=== PATIENT | male | born 1980 | race Caucasian/White ===

== ENCOUNTER 2016-07-27 08:13 | Day surgery (SDC) | payer BC ==
[2016-07-22 11:05] VITALS: BMI 28.8
[2016-07-27] MEDS ORDERED: MIDAZOLAM HCL 2 MG/2 ML SINGLE DOSE VIAL ONE (09:33)
[2016-07-27] MEDS ORDERED: PROPOFOL 20 ML ONE ×2 (09:37)
[2016-07-27] MEDS ORDERED: BUPIVACAINE HCL/PF 2.5 MG/ML - 30 ML VIAL IJ ONE (10:00)
[2016-07-27] MEDS ORDERED: LACTATED RINGERS SOLUTION 1,000 ML IV SCH (11:15)
[2016-07-27] MEDS ORDERED: ONDANSETRON 4 MG/2 ML VIAL IVPUSH PRN (11:15)
[2016-07-27] MEDS ORDERED: BUPIVACAINE HCL/PF 0.25% (2.5MG/ML) 10 ML VIAL IJ ONE (11:15)
[2016-07-27] MEDS ORDERED: oxyCODONE HCL 5 MG TABLET PO PRN ×2 (11:15)
[2016-07-27 12:33] VITALS: TEMP 98.2
[2016-07-27 14:07] VITALS: BP 124/70; PULSE 84
--- NOTE | 2016-07-28 09:19 | OP ---
DATE OF OPERATION: 07/27/2016 PREOPERATIVE DIAGNOSIS: Left wrist mass. POSTOPERATIVE DIAGNOSES: 1. Left wrist mass. 2. Left wrist adherent radial artery. OPERATIVE PROCEDURES: 1. Left wrist mass excision. 2. Left wrist radial artery extensive dissection and ligation. SURGEON: Karol Garibay MD MARKET RESEARCH INTERVIEWER: DIAMANTE Yusuf ANESTHESIA: General. COMPLICATIONS: None. ESTIMATED BLOOD LOSS: Minimal. INDICATIONS FOR PROCEDURE: The patient is a 35-year-old male with the above finding, indicated for operative treatment. Risks, benefits, and alternatives were discussed with the patient at length and proper informed consent was obtained. The patient was particularly advised preoperatively, as this was his third operation in the area, extensive scar tissue would be expected and ligation of the artery may be necessary. Preoperative Murali test was patent at the ulnar and radial artery. PROCEDURE: After proper identification of the patient and correct operative site, the patient was brought to the operating room and placed supine on the operating room table. All prominences were well padded. General anesthesia was given by the anesthesiologist. Intravenous antibiotics were given. A timeout procedure was performed. Left upper extremity was prepped and draped in the usual sterile fashion. A well-padded tourniquet was placed over the sterile prep. Esmarch bandage used to exsanguinate the left upper extremity. Tourniquet was inflated to 250 mmHg. The patient's prior incision was made and then enlarged distally and proximally. Incision was taken sharply through the skin with blunt and sharp dissection of subcutaneous tissues. The mass was quite large and appeared to be a cystic structure. It was in the volar radial aspect and then over the opposite side dorsal radially compartment. Dissection was performed through the subcutaneous tissues, taking care to protect any attaching nerves. The radial artery was identified proximally and distally and was densely adherent to the mass. Therefore, it was ligated both proximally and distally. The tourniquet was released and the hand was well perfused. The tourniquet was reinflated and the mass was excised in whole and appeared to be emanating from the radiocarpal joint. The mass was one large, multi-loculated structure. The tourniquet was again released and hemostasis was achieved with electrocautery. The hand was again well perfused. The wound was irrigated with copious amounts of normal saline and repaired with a 5-0 nylon suture. Sterile dressings were applied. The patient was reversed from anesthesia and brought to the recovery room in stable condition. He tolerated the procedure well. Angel Hogan, the assistant reading teacher, was integral throughout this procedure. The procedure could not have been performed without a skilled operative assistant reading teacher. KAROL GARIBAY M.D. JOSE [id number]
--- NOTE | 2016-07-29 16:16 | PATH ---
Surgical Pathology Report Patient Name: KYAW ERAZO JR [facility]. Rec. #: [id number] /Age/Gender: 1980 (Age: 35) / M Account: [id number] Location: [facility] Taken: 07/27/2016 Received: 07/27/2016 Reported: 07/29/2016 Physicians: Julio Jimenez M.D. Specimen(s) Received LEFT WRIST MASS Clinical History Left wrist mass Final Diagnosis WRIST, LEFT, MASS, EXCISION: GANGLION CYST. Electronically Signed Erika Briones M.D. Gross Description Received in formalin labeled "left wrist mass," is a 1.2 x 1.1 x 0.4 cm duffy, intact cyst containing mucinous material. Also received within the same container is a 1.8 x 0.6 x 0.4 cm duffy, irregular portion of fibrous tissue. The fibrous tissue is bisected and the cyst is serially sectioned. The specimen is entirely submitted in one cassette. 07/28/201607/28/2016
== END 2016-07-27 12:50 | disposition home or self-care (01) ==
LOC: FASU 08:13
PROVIDERS: ATTEND Orthopaedic Surgery Hand Surgery
PROC: 0JBH0ZZ Excision of Left Lower Arm Subcutaneous Tissue and Fascia, Open Approach (ICD-10-PCS; principal; 2016-07-27 09:59)
DX: M67.432 Ganglion, left wrist (principal)
CPT/HCPCS: 88304-TC; 94760

== ENCOUNTER 2018-02-19 09:54 | Inpatient (IN) | payer BC ==
[2018-02-16 08:58] VITALS: BMI 30.1
[2018-02-19] MEDS ORDERED: oxyCODONE HCL 5 MG TABLET ONE (11:50)
[2018-02-19] MEDS ORDERED: oxyCODONE HCL 5 MG TABLET PO ONE (11:57)
[2018-02-19] MEDS ORDERED: PROPOFOL 20 ML ONE ×10 (17:46→20:25)
[2018-02-19] MEDS ORDERED: fentaNYL CITRATE 250 MCG/5 ML VIAL ONE ×2 (17:46→19:02)
[2018-02-19] MEDS ORDERED: MIDAZOLAM HCL 2 MG/2 ML SINGLE DOSE VIAL ONE ×4 (17:46)
[2018-02-19] MEDS ORDERED: SUCCINYLCHOLINE CHLORIDE 200 MG/10 ML VIAL ONE (17:47)
[2018-02-19] MEDS ORDERED: THROMBIN (BOVINE) 5,000 UNIT VIAL TP ONE (18:03)
[2018-02-19] MEDS ORDERED: VANCOMYCIN 1,000 MG VIAL (RESTRICTED TO ID ONLY) ONE (18:24)
[2018-02-19] MEDS ORDERED: VANCOMYCIN 1,000 MG VIAL (RESTRICTED TO ID ONLY) IVPB ONE (18:27)
[2018-02-19] MEDS ORDERED: DEXAMETHASONE SOD PHOSPHATE 4 MG/1 ML VIAL ONE ×2 (18:43→18:48)
[2018-02-19] MEDS ORDERED: ceFAZolin SODIUM 1 GM VIAL IVPB ONE (18:48)
[2018-02-19] MEDS ORDERED: ceFAZolin SODIUM 1 GM VIAL ONE (18:49)
[2018-02-19] MEDS ORDERED: DESFLURANE GAS 240 ML BOTTLE IH ONE (19:48)
--- NOTE | 2018-02-19 21:04 | PN ---
Progress Note (short form) - Note Progress Note: 37M s/p C4-C5 ACDF POD #0. -Admit to ICU for airway observation; ok to downgrade to floor if airway stable 02/20/2018. 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 -DVT PPx: -Mechanical only: ALISTAIR's, SCD's. -Incentive spirometry. -PT/OT/Rehab, OOB. -WBAT B/L UE & LE. -No heavy lifting >5 lbs., bending, or twisting. -Puree diet; advance as tolerated. -Care per medical hospitalist team. -d/c Ordaz at midnight; f/u TOV. -Discharge planning: f/u [facility] [place] office 03/01/2018. -Will follow. Luis Antonio Beckford MD (Orthopaedic Surgery).
--- NOTE | 2018-02-19 21:06 | OP ---
Operative Note - Note: Operative Date: 02/19/18 Pre-Operative Diagnosis: C4-C5: 1. Intervertebral disc disorder. 2. Cervical radiculopathy. 3. Cervical myelopathy. 4. Cervical spinal stenosis Operation: C4-C5 anterior cervical discectomy and fusion Post-Operative Diagnosis: Same as Pre-op Surgeon: Luis Antonio Beckford Contour Stitcher: Bret Beckfodr Anesthesiologist/DAMPENER: Jennifer Hernandez Anesthesia: General Specimens Removed: C4-C5 disc Estimated Blood Loss (mls): 20 Fluid Volume Replaced (mls): 1,000 Operative Report Dictated: Yes
[2018-02-19] MEDS ORDERED: ONDANSETRON 4 MG/2 ML VIAL IVPUSH PRN ×2 (21:07)
[2018-02-19] MEDS ORDERED: oxyCODONE HCL 5 MG TABLET PO PRN (21:07)
[2018-02-19] MEDS ORDERED: LACTATED RINGERS SOLUTION 1,000 ML IV SCH ×2 (21:15)
[2018-02-19] MEDS ORDERED: ACETAMINOPHEN INJECTION 100 ML IVPB ONE (21:25)
[2018-02-19] MEDS: ACETAMINOPHEN 1000 MG/100 ML VIAL (NON FORMULARY) IVPB PRN (21:25)
[2018-02-19] MEDS: HYDROmorphone HCl 2 MG/ML VIAL IVPB PRN (23:14)
[2018-02-20] MEDS: oxyCODONE HCL 5 MG TABLET PO PRN ×5 (02:35→20:54)
--- NOTE | 2018-02-20 04:50 | CONSULT ---
Consultation: REQUESTING PROVIDER: Dr. Beckford CONSULT REQUEST: We have been asked to medically evaluate this patient for s/p anterior cervical discectomy and fusion. HISTORY OF PRESENT ILLNESS: Patient is a 37 year old male with PMHx of cervical progressive cervical radiculopathy for the past year with failure of conservative care. Patient had no injury reported prior to the pain and was scheduled for elective procedure . Patient is now POD #0 s/p C4-C5 anterior cervical discectomy and fusion and transferred to ICU for overnight monitoring. Patient had estimated blood loss of 20cc with no complications intraoperatively reported. Patient reports having some soreness around the neck but is adequately controlled with the pain medications. He does report passing gas but has not had a bowel movement. Otherwise, patient denies any fever, chills, nausea, vomiting, abdominal pain, chest pain, palpitations, shortness of breath, headaches. PMHx: Chronic lower back pain PSHx: Denies Social Hx: Works for the [employer] at the [employer]. Lives with , three kids and mother Smokes 1/2 PPD for 20+ years Occasional drinking Denies Drug use Family Hx: Mother is healthy Father had DM, HTN, HLD, Heart problems Medications: Denies taking any Allergies: NKDA REVIEW OF SYSTEMS: CONSTITUTIONAL: Absent: fever, chills, diaphoresis, generalized weakness, malaise, loss of appetite, weight change HEENT: Absent: rhinorrhea, nasal congestion, throat pain, throat swelling, difficulty swallowing, mouth swelling, ear pain, eye pain, visual changes CARDIOVASCULAR: Absent: chest pain, syncope, palpitations, irregular heart rate, lightheadedness , peripheral edema RESPIRATORY: Absent: cough, shortness of breath, dyspnea with exertion, orthopnea, wheezing, stridor, hemoptysis GASTROINTESTINAL: Absent: abdominal pain, abdominal distension, nausea, vomiting, diarrhea, constipation, melena, hematochezia GENITOURINARY: Absent: dysuria, frequency, urgency, hesitancy, hematuria, flank pain, genital pain MUSCULOSKELETAL: neck pain Absent: myalgia, arthralgia, joint swelling, back pain SKIN: Absent: rash, itching, pallor HEMATOLOGIC/IMMUNOLOGIC: Absent: easy bleeding, easy bruising, lymphadenopathy, frequent infections ENDOCRINE: Absent: unexplained weight gain, unexplained weight loss, heat intolerance, cold intolerance NEUROLOGIC: Absent: headache, focal weakness or paresthesias, dizziness, unsteady gait, seizure, mental status changes, bladder or bowel incontinence PSYCHIATRIC: Absent: anxiety, depression, suicidal or homicidal ideation, hallucinations. PHYSICAL EXAMINATION Vital Signs - 24 hr 02/19/18 02/19/18 02/19/18 10:38 20:57 21:10 Temperature 97.9 F 99 F Pulse Rate 89 93 H 84 Respiratory 20 20 16 Rate Blood Pressure 125/69 134/88 121/62 O2 Sat by Pulse 98 100 100 Oximetry (%) 02/19/18 02/19/18 02/19/18 21:25 21:40 21:55 Temperature Pulse Rate 80 82 82 Respiratory 16 16 16 Rate Blood Pressure 130/81 130/80 128/79 O2 Sat by Pulse 100 100 100 Oximetry (%) 02/19/18 02/19/18 02/19/18 22:10 22:20 23:57 Temperature 98.5 F 98.7 F Pulse Rate 80 72 76 Respiratory 16 16 18 Rate Blood Pressure 125/83 125/67 110/70 O2 Sat by Pulse 100 99 Oximetry (%) 02/20/18 01:07 Temperature 98.5 F Pulse Rate 79 Respiratory 18 Rate Blood Pressure 123/81 O2 Sat by Pulse Oximetry (%) GENERAL: Awake, alert, and fully oriented, in no acute distress. HEAD: Normal with no signs of trauma. EYES: Pupils equal, round and reactive to light, extraocular movements intact, sclera anicteric, conjunctiva clear. No lid lag. EARS, NOSE, THROAT: Oropharynx clear without exudates. Dry mucous membranes. NECK: Left surgical dressing c/d/i LUNGS: Breath sounds equal, clear to auscultation bilaterally. No wheezes, and no crackles. No accessory muscle use. HEART: Regular rate and rhythm, normal S1 and S2 without murmur, rub or gallop. ABDOMEN: Soft, nontender, not distended, normoactive bowel sounds, no guarding, no rebound, no masses. : Ordaz in place UPPER EXTREMITIES: No peripheral edema. LOWER EXTREMITIES: No peripheral edema. NEUROLOGICAL: Cranial nerves II-XII intact. Normal speech. Motor strength 5/5 bilaterally with sensory intact. No facial assymetry PSYCHIATRIC: Cooperative. Good eye contact. Appropriate mood and affect. SKIN: Warm, dry, normal turgor, no rashes or lesions noted. Laboratory Results - last 24 hr 02/19/18 02/19/18 10:01 10:35 Blood Type O POSITIVE O POSITIVE Antibody Screen Negative Active Medications Generic Name Dose Route Start Last Admin Trade Name Colin PRN Reason Stop Dose Admin Acetaminophen 1,000 mg 02/19/18 21:07 02/19/18 21:25 Ofirmev Injection - IVPB 02/20/18 21:06 1,000 mg PRN PRN Administration If narcotics are ineffective Fentanyl 50 mcg 02/19/18 21:07 02/19/18 21:31 Sublimaze Injection - IVPUSH 50 mcg [id number] PRN Administration PAIN-PACU ORDER X 4 DOSES ONLY Hydromorphone HCl 1 mg 02/19/18 21:08 02/19/18 23:14 Dilaudid Vial - IVPB 1 mg Q4H PRN Administration PAIN LEVEL 6-10 Lactated Ringer's 1,000 mls @ 75 mls/hr 02/19/18 21:15 02/20/18 02:22 Lactated Ringers Solution IV Not Given ASDIR KRISTY Lactated Ringer's 1,000 mls @ 125 mls/hr 02/19/18 21:15 02/19/18 22:30 Lactated Ringers Solution IV 125 mls/hr ASDIR KRISTY Administration Ondansetron HCl 4 mg 02/19/18 21:07 Zofran Injection IVPUSH Q6H PRN NAUSEA AND/OR VOMITING Oxycodone HCl 5 mg 02/19/18 21:07 Roxicodone - PO Q4H PRN PAIN LEVEL 6-10 Oxycodone HCl 10 mg 02/19/18 21:07 02/20/18 02:35 Roxicodone - PO 10 mg Q4H PRN Administration PAIN LEVEL 7 - 10 ASSESSMENT/PLAN: Patient is a 37 year old male who presented here for elective procedure due to progressive cervical radiculopathy and is now s/p C4-C5 anterior cervical discectomy and fusion. Patient transferred to ICU for further monitoring and management. SURGERY #S/P C4-C5 anterior cervical discectomy and fusion -Pain control with Dilaudid, Tylenol, Roxicodone. No NSAID's or FILM HISTORIAN -IV fluids with LR @125mls/hr -Mechanical DVT prophylaxis with SCD's and ALISTAIR's -Continue Incentive spirometry -Puree diet and may advance as tolerated -Will need PT/OT/Rehab and OOB -Weight Bearing as tolerated -No heavy lifting >5lb, bending or twisting F/E/N -IV LR @125mls/hr -Labs in the morning to check for electrolytes -Puree Diet Prophylaxis -SCD's and ALISTAIR's for DVT -No GI required Disposition -Full code -Overnight monitoring and if stable, may be transferred to the floors in the morning Dispo: We will continue to follow the patient. Thank you for this consultative opportunity. Tiffani Erickson [id number] Visit type - Emergency Visit Emergency Visit: Yes ED Registration Date: 02/19/18 Care time: The patient presented to the Emergency Department on the above date and was hospitalized for further evaluation of their emergent condition. - New Patient This patient is new to me today: Yes Date on this admission: 02/20/18 - Critical Care Critical Care patient: Yes Total Critical Care Time (in minutes): 45 Critical Care Statement: The care of this patient involved high complexity decision making to prevent further life threatening deterioration of the patient 's condition and/or to evaluate & treat vital organ system(s) failure or risk of failure.
[2018-02-20] MEDS: HYDROmorphone HCl 2 MG/ML VIAL IVPB PRN (05:07)
[2018-02-20 06:13] LABS: HEMATOCRIT 42.5 % (35.4-49); HEMOGLOBIN 14.7 GM/dL (11.7-16.9); MCH 30.1 pg (25.7-33.7); MCHC 34.7 g/dl (32.0-35.9); MEAN CELL VOLUME 86.9 fl (80-96); MEAN PLT VOLUME 7.9 fl (7.5-11.1); PLATELET COUNT 299 K/MM3 (134-434); RBC 4.89 M/mm3 (4.00-5.60); RDW 13.9 % (11.9-15.9); WHITE BLOOD COUNT 11.2 K/mm3 (4.0-10.0)
[2018-02-20 07:10] LABS: ANION GAP 6 MMOL/L (8-16); BLOOD UREA NITROGEN 12 mg/dL (7-18); CALCIUM 9.3 mg/dL (8.5-10.1); CHLORIDE 100 mmol/L (98-107); CO2 30 mmol/L (21-32); GLUCOSE,RANDOM 124 mg/dL (74-106); POTASSIUM 4.5 mmol/L (3.5-5.1); SODIUM 136 mmol/L (136-145)
--- NOTE | 2018-02-20 08:28 | PN ---
Progress Note, Physician Chief Complaint: s/p acdf under general anesthesia History of Present Illness: post op day one - Current Medication List Current Medications: Active Medications Acetaminophen (Ofirmev Injection -) 1,000 mg IVPB PRN PRN PRN Reason: If narcotics are ineffective Stop: 02/20/18 21:06 Last Admin: 02/19/18 21:25 Dose: 1,000 mg Fentanyl (Sublimaze Injection -) 50 mcg IVPUSH [id number] PRN PRN Reason: PAIN-PACU ORDER X 4 DOSES ONLY Last Admin: 02/19/18 21:31 Dose: 50 mcg Hydromorphone HCl (Dilaudid Vial -) 1 mg IVPB Q4H PRN PRN Reason: PAIN LEVEL 6-10 Last Admin: 02/20/18 05:07 Dose: 1 mg Lactated Ringer's (Lactated Ringers Solution) 1,000 mls @ 75 mls/hr IV [facility] Last Admin: 02/20/18 02:22 Dose: Not Given Lactated Ringer's (Lactated Ringers Solution) 1,000 mls @ 125 mls/hr IV [facility] Last Admin: 02/19/18 22:30 Dose: 125 mls/hr Ondansetron HCl (Zofran Injection) 4 mg IVPUSH Q6H PRN PRN Reason: NAUSEA AND/OR VOMITING Oxycodone HCl (Roxicodone -) 5 mg PO Q4H PRN PRN Reason: PAIN LEVEL 6-10 Oxycodone HCl (Roxicodone -) 10 mg PO Q4H PRN PRN Reason: PAIN LEVEL 7 - 10 Last Admin: 02/20/18 07:51 Dose: 10 mg - Objective Vital Signs: Vital Signs Temperature 98.2 F 02/20/18 06:00 Pulse Rate 78 02/20/18 06:00 Respiratory Rate 18 02/20/18 06:00 Blood Pressure 120/70 02/20/18 06:00 O2 Sat by Pulse Oximetry (%) 99 02/19/18 23:57 Constitutional: Yes: Well Nourished Cardiovascular: Yes: WNL Respiratory: Yes: WNL Gastrointestinal: Yes: WNL Labs: CBC, BMP 02/20/18 05:30 02/20/18 05:30 Assessment/Plan No adverse effect of anesthetic, no nausea or vomiting, dept of anesthesiology will sign off care at this time
[2018-02-20 08:58] LABS: MAGNESIUM 2.2 mg/dL (1.8-2.4); PHOSPHOROUS 4.6 mg/dL (2.5-4.9)
[2018-02-20] MEDS: ACETAMINOPHEN 1000 MG/100 ML VIAL (NON FORMULARY) IVPB PRN (11:30)
--- NOTE | 2018-02-20 11:34 | OP ---
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 OPERATION PERFORMED: 1. Anterior cervical discectomy C4-C5. 2. Partial corpectomy C4, partial corpectomy C5. 3. Insertion of cage. 4. Anterior arthrodesis with bone graft C4-C5 5. Anterior plating, C4-C5. 6. Use of biplane fluoroscopy and intraoperative neuromonitoring. ANESTHESIA: General. ANTIBIOTICS: Kefzol 2 g, vancomycin 1 g, and Decadron 10 mg given preoperatively. OPERATION IN DETAIL: The patient was correctly identified, brought into the operating room, placed supine on the operating table, placed neck extended. No change in neuromonitoring noted from the neutral position to the extended position. Time-out was called. Imaging was available for intraoperative evaluation. An incision at the lines of Paulina at the level of cricothyroid interval performed. This gave easy access to platysma, which was split longitudinally. This took us directly down to the investing layer of fascia. This was opened longitudinally in the line of the platysmal split. With finger digital palpation, the plane lateral to the strap muscles between the viscera and vessels and really enabled us to get straight down to the anterior vertebral prevertebral fascia. A peanut was used to develop a plane within the fascia deep to the fascia to the anterior vertebral bodies and longus coli. The longus coli was gently dissected off of bone using unipolar Bovie both left and right hand side to receive the tooth retractor, which was a self-retaining retractor into the muscle belly itself. A needle 18-gauge bent appropriately degrees was placed into the C4-C5 disc. Lateral fluoroscopic x- ray confirmed the position of the C4-C5 disc for correct level of surgery. [place] pins were placed in the body of C4 and C5. This was again looked at under fluoroscopic x-ray to ensure the correct levels and the good seating of the pins. The distractor device applied. The edge of the annulus and disc were transected going in a transverse direction using a unipolar Bovie. The entire disc, which was clearly abnormal and fragmented was removed using pituitary rongeurs as well as curettes appropriately. Using a 40-mm michael-tipped tevin, the uncovertebral joints as well as the end- plates were shaved down to a rectangular space. The disc was taken right down to posterior longitudinal ligament. The longitudinal ligament was taken down right down to the theca and exposing the theca completely from left to right hand side. All forms of thecal material were removed. The rongeur achieved a complete resection of such. A partial corpectomy was performed at C4 and C5 appropriately using Kerrisons as well as the tevin. A size 7 Fortilink cage was inserted with bone graft namely demineralized bone matrix. This was seated solidly into position and a [place] device released snugly bringing about ligamentotaxis adherence of the cage appropriately. A size 14 precision plate inserted. The screws were placed appropriately. It was felt to be in solid bone because usually the lateral fluoroscopic x-ray enables clear vision of the plate and screws, but the ambulatory nurse struggled to give us clear visualization. We went back and looked inside the wound to line up the screws clinically to see that everything was seated well and we elected to accept the position we were in. The plate was locked solidly in position accordingly. Wounds were thoroughly lavaged. Closure platysma 3-0 Vicryl, subcutaneous 3-0 Vicryl, skin 3-0 Monocryl with Steri-Strips. No drains. Operation went well, no complications. MD TARI Erickson/[id number] MTDD
--- NOTE | 2018-02-20 13:15 | PN ---
Physical Exam: SUBJECTIVE: Patient seen and examined; wanted to go home today as thought he was only qualified for 23 hours but he is set for full inpatient; Dr. Zambrano confirmed with CM. No new complaints. Radiculopathy resolved. No numbness, tingling. Strength is baseline. 10 sys ROS done and negative aside from HPI OBJECTIVE: Vital Signs Period Temp Pulse Resp BP Sys/Christopher Pulse Ox Last 24 Hr 98.2 F-99 F 72-93 16-20 110-134/62-90 95-100 GENERAL: The patient is awake, alert, and fully oriented, in no acute distress. HEAD: Normal with no signs of trauma. EYES: PERRL, extraocular movements intact, sclera anicteric, conjunctiva clear. ENT: Ears normal, nares patent, oropharynx clear without exudates NECK: Trachea midline, full range of motion, supple. LUNGS: Breath sounds equal, clear to auscultation bilaterally, no wheezes, no crackles, no accessory muscle use. HEART: Regular rate and rhythm, S1, S2 without murmur, rub or gallop. ABDOMEN: Soft, nontender, nondistended, normoactive bowel sounds EXTREMITIES: 2+ pulses, warm, well-perfused, no edema. NEUROLOGICAL: Cranial nerves II through XII grossly intact. Normal speech, strength 5/5 all ext with normal sensorium PSYCH: Normal mood, normal affect. SKIN: Warm, dry, normal turgor, no rashes or lesions noted; dressing CDI Laboratory Results - last 24 hr 02/19/18 02/20/18 02/20/18 10:35 05:30 05:30 WBC 11.2 H RBC 4.89 Hgb 14.7 Hct 42.5 MCV 86.9 MCH 30.1 MCHC 34.7 RDW 13.9 Plt Count 299 MPV 7.9 Sodium 136 Potassium 4.5 Chloride 100 Carbon Dioxide 30 Anion Gap 6 L BUN 12 Creatinine 1.0 Creat Clearance w eGFR > 60 Random Glucose 124 H Calcium 9.3 Phosphorus 4.6 Magnesium 2.2 Blood Type O POSITIVE Active Medications Generic Name Dose Route Start Last Admin Trade Name Freq PRN Reason Stop Dose Admin Acetaminophen 1,000 mg 02/19/18 21:07 02/20/18 11:30 Ofirmev Injection - IVPB 02/20/18 21:06 1,000 mg PRN PRN Administration If narcotics are ineffective Fentanyl 50 mcg 02/19/18 21:07 02/19/18 21:31 Sublimaze Injection - IVPUSH 50 mcg [id number] PRN Administration PAIN-PACU ORDER X 4 DOSES ONLY Hydromorphone HCl 1 mg 02/19/18 21:08 02/20/18 05:07 Dilaudid Vial - IVPB 1 mg Q4H PRN Administration PAIN LEVEL 6-10 Ondansetron HCl 4 mg 02/19/18 21:07 Zofran Injection IVPUSH Q6H PRN NAUSEA AND/OR VOMITING Oxycodone HCl 5 mg 02/19/18 21:07 Roxicodone - PO Q4H PRN PAIN LEVEL 6-10 Oxycodone HCl 10 mg 02/19/18 21:07 02/20/18 12:06 Roxicodone - PO 10 mg Q4H PRN Administration PAIN LEVEL 7 - 10 ASSESSMENT/PLAN: 1) S/P Anterior C4-C5 Discectomy and fusion, elective. POD#1 -Pain controlled on PO; passing gas. Tolerating liquids and will advance diet as tolerated -Downgrading to floor, avoiding NSAIDs and continue current PO analgesia. -SCDs for DVT px -Avoid twisting, 5lb lifting restriction -Monitor airway; no distress or swelling noted. Preform serial exams. -If stable tomorrow consider potential for DC; counseled regarding LOS in hospital and what to expect. 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 Visit type - Emergency Visit Emergency Visit: No - New Patient This patient is new to me today: Yes Date on this admission: 02/20/18 - Critical Care Critical Care patient: No
--- NOTE | 2018-02-20 14:34 | PN ---
Teaching Attending Note Name of Resident: Giancarlo George ATTENDING PHYSICIAN STATEMENT I saw and evaluated the patient. I reviewed the resident's note and discussed the case with the resident. I agree with the resident's findings and plan as documented. SUBJECTIVE: Patient seen and examined in the ICU. Awake and alert. Pain level 3/10. No CP or SOB. Intake & Output 02/18/18 02/18/18 02/19/18 02/20/18 00:59 23:59 23:59 23:59 Intake Total 1800 1850 Output Total 820 1675 Balance 980 175 Last Vital Signs Temp Pulse Resp BP Pulse Ox 98.3 F 74 18 116/65 95 02/20/18 13:55 02/20/18 13:55 02/20/18 13:55 02/20/18 13:55 02/20/18 09:00 Active Medications Acetaminophen (Ofirmev Injection -) 1,000 mg IVPB PRN PRN PRN Reason: If narcotics are ineffective Stop: 02/20/18 21:06 Last Admin: 02/20/18 11:30 Dose: 1,000 mg Fentanyl (Sublimaze Injection -) 50 mcg IVPUSH [id number] PRN PRN Reason: PAIN-PACU ORDER X 4 DOSES ONLY Last Admin: 02/19/18 21:31 Dose: 50 mcg Hydromorphone HCl (Dilaudid Vial -) 1 mg IVPB Q4H PRN PRN Reason: PAIN LEVEL 6-10 Last Admin: 02/20/18 05:07 Dose: 1 mg Ondansetron HCl (Zofran Injection) 4 mg IVPUSH Q6H PRN PRN Reason: NAUSEA AND/OR VOMITING Oxycodone HCl (Roxicodone -) 5 mg PO Q4H PRN PRN Reason: PAIN LEVEL 6-10 Oxycodone HCl (Roxicodone -) 10 mg PO Q4H PRN PRN Reason: PAIN LEVEL 7 - 10 Last Admin: 02/20/18 12:06 Dose: 10 mg GENERAL: Awake, alert, and fully oriented, in no acute distress. HEAD: Mild right sided facial swelling EYES: Pupils equal, sclera anicteric, conjunctiva clear. No lid lag. EARS, NOSE, THROAT: Dry mucous membranes. NECK: surgical dressing c/d/i LUNGS: Breath sounds equal, clear to auscultation bilaterally. No wheezes, and no crackles. No accessory muscle use. HEART: Regular rate and rhythm, normal S1 and S2 without murmur, rub or gallop. ABDOMEN: Soft, nontender, not distended, normoactive bowel sounds, no guarding, no rebound, no masses. UPPER EXTREMITIES: No peripheral edema. LOWER EXTREMITIES: No peripheral edema. NEUROLOGICAL: non-focal PSYCHIATRIC: Cooperative. Good eye contact. Appropriate mood and affect. SKIN: Warm, dry, normal turgor, no rashes or lesions noted. Laboratory Results - last 24 hr 02/19/18 02/20/18 02/20/18 10:35 05:30 05:30 WBC 11.2 H RBC 4.89 Hgb 14.7 Hct 42.5 MCV 86.9 MCH 30.1 MCHC 34.7 RDW 13.9 Plt Count 299 MPV 7.9 Sodium 136 Potassium 4.5 Chloride 100 Carbon Dioxide 30 Anion Gap 6 L BUN 12 Creatinine 1.0 Creat Clearance w eGFR > 60 Random Glucose 124 H Calcium 9.3 Phosphorus 4.6 Magnesium 2.2 Blood Type O POSITIVE ASSESSMENT/PLAN: POD #1: C4-C5 anterior cervical discectomy and fusion Progressive cervical radiculopathy Pain control VTE prophylaxis O2 as needed PO as tolerated Floor Disposition per Ortho Dr Jarrell
--- NOTE | 2018-02-20 16:45 | PN ---
Physical Exam: SUBJECTIVE: Patient seen and examined at bedside. Patient reports pain on surgical site, relieved by pain medications. Ordaz discontinued this morning, no complaints of retention. Patient denies weakness, numbness, tingling. He is able to ambulate OOB with assistance. Reports that he has passed gas this morning. Started on regular diet tonight to which he tolerated. OBJECTIVE: Vital Signs Period Temp Pulse Resp BP Sys/Christopher Pulse Ox Last 24 Hr 98.2 F-99 F 72-93 16-20 110-134/62-90 95-100 GENERAL: The patient is awake, alert, and fully oriented, in no acute distress. HEAD: Normal with no signs of trauma. EYES: PERRLA, EOMI, sclera anicteric, conjunctiva clear. NECK: +bandage anteriorly LUNGS: Breath sounds equal, clear to auscultation bilaterally. HEART: Regular rate and rhythm, S1, S2 without murmur, rub or gallop. ABDOMEN: Soft, nontender, nondistended, normoactive bowel sounds. EXTREMITIES: 2+ pulses, warm, well-perfused, no edema. NEUROLOGICAL: Cranial nerves II through XII grossly intact. Normal speech, gait not observed. PSYCH: Normal mood, normal affect. SKIN: Warm, dry, normal turgor, no rashes or lesions noted Laboratory Results - last 24 hr 02/20/18 02/20/18 05:30 05:30 WBC 11.2 H RBC 4.89 Hgb 14.7 Hct 42.5 MCV 86.9 MCH 30.1 MCHC 34.7 RDW 13.9 Plt Count 299 MPV 7.9 Sodium 136 Potassium 4.5 Chloride 100 Carbon Dioxide 30 Anion Gap 6 L BUN 12 Creatinine 1.0 Creat Clearance w eGFR > 60 Random Glucose 124 H Calcium 9.3 Phosphorus 4.6 Magnesium 2.2 Active Medications Generic Name Dose Route Start Last Admin Trade Name Freq PRN Reason Stop Dose Admin Acetaminophen 1,000 mg 02/19/18 21:07 02/20/18 11:30 Ofirmev Injection - IVPB 02/20/18 21:06 1,000 mg PRN PRN Administration If narcotics are ineffective Fentanyl 50 mcg 02/19/18 21:07 02/19/18 21:31 Sublimaze Injection - IVPUSH 50 mcg [id number] PRN Administration PAIN-PACU ORDER X 4 DOSES ONLY Hydromorphone HCl 1 mg 02/19/18 21:08 02/20/18 05:07 Dilaudid Vial - IVPB 1 mg Q4H PRN Administration PAIN LEVEL 6-10 Ondansetron HCl 4 mg 02/19/18 21:07 Zofran Injection IVPUSH Q6H PRN NAUSEA AND/OR VOMITING Oxycodone HCl 5 mg 02/19/18 21:07 Roxicodone - PO Q4H PRN PAIN LEVEL 6-10 Oxycodone HCl 10 mg 02/19/18 21:07 02/20/18 12:06 Roxicodone - PO 10 mg Q4H PRN Administration PAIN LEVEL 7 - 10 ASSESSMENT/PLAN: Patient is a 37 year old male who presented here for elective procedure due to progressive cervical radiculopathy and is now s/p C4-C5 anterior cervical discectomy and fusion. #Surgery 1)S/P C4-C5 anterior cervical discectomy and fusion -Pain control with Dilaudid, Tylenol, Roxicodone. No NSAID's or TOP ICER. -IV fluids discontinued as patient is tolerating regular diet. -Mechanical DVT prophylaxis with SCD's and ALISTAIR's -Continue Incentive spirometry -Regular diet. -Will need PT/OT/Rehab and OOB -Weight Bearing as tolerated -No heavy lifting >5lb, bending or twisting #F/E/N -Not on any standing fluids. -Encourage increased oral fluid intake. -Routine bmp monitoring -Regular diet as tolerated. #Prophylaxis -SCD's and ALISTAIR's for DVT -No GI required #Disposition -Full code -Transfer to med-surg. Visit type - Emergency Visit Emergency Visit: Yes ED Registration Date: 02/19/18 Care time: The patient presented to the Emergency Department on the above date and was hospitalized for further evaluation of their emergent condition. - New Patient This patient is new to me today: Yes Date on this admission: 02/20/18 - Critical Care Critical Care patient: Yes Total Critical Care Time (in minutes): 35 Critical Care Statement: The care of this patient involved high complexity decision making to prevent further life threatening deterioration of the patient 's condition and/or to evaluate & treat vital organ system(s) failure or risk of failure.
[2018-02-20] MEDS ORDERED: PT OWN MED DRAWER 7, Y5N ONE (17:12)
[2018-02-20] MEDS ORDERED: oxyCODONE HCL 5 MG TABLET PO PRN ×2 (19:18→20:32)
[2018-02-20] MEDS ORDERED: HYDROmorphone HCl 2 MG/ML VIAL IVPB PRN (19:18)
[2018-02-20] MEDS ORDERED: ONDANSETRON 4 MG/2 ML VIAL IVPUSH PRN (19:18)
[2018-02-21 07:36] LABS: HEMATOCRIT 40.2 % (35.4-49); HEMOGLOBIN 13.2 GM/dL (11.7-16.9); MCH 28.5 pg (25.7-33.7); MCHC 32.7 g/dl (32.0-35.9); MEAN PLT VOLUME 8.1 fl (7.5-11.1); PLATELET COUNT 267 K/MM3 (134-434); RBC 4.62 M/mm3 (4.00-5.60); RDW 13.9 % (11.9-15.9); WHITE BLOOD COUNT 11.8 K/mm3 (4.0-10.0)
[2018-02-21 08:05] LABS: ANION GAP 8 MMOL/L (8-16); BLOOD UREA NITROGEN 13 mg/dL (7-18); CHLORIDE 103 mmol/L (98-107); CO2 29 mmol/L (21-32); CREATININE 0.8 mg/dL (0.55-1.3); GLUCOSE,RANDOM 97 mg/dL (74-106); POTASSIUM 4.1 mmol/L (3.5-5.1); SODIUM 140 mmol/L (136-145)
[2018-02-21] MEDS: oxyCODONE HCL 5 MG TABLET PO PRN (09:59)
[2018-02-21 11:23] VITALS: BP 127/76; PULSE 88; TEMP 98.5
--- NOTE | 2018-02-21 17:09 | PATH ---
Surgical Pathology Report Patient Name: KYAW ERAZO JR Med. Rec. #: [id number] /Age/Gender: 1980 (Age: 37) / M Account: [id number] Location: [facility] MED/SURG Taken: 02/19/2018 Received: 02/20/2018 Reported: 02/21/2018 Physicians: Luis Antonio Beckford M.D. Specimen(s) Received DISC C4-C5 Clinical History Mid cervical disc disorder Final Diagnosis DISC, C4-5, ANTERIOR CERVICAL DISCECTOMY AND PARTIAL CORPECTOMY: BENIGN INTERVERTEBRAL DISC TISSUE. Electronically Signed Sarah Palm M.D. Gross Description Received in formalin labeled "disc C4-5," is a 3.2 x 3.2 x 0.4 cm aggregate of duffy fragments of fibrocartilaginous tissue. A outside dealer sales representative portion is submitted in one cassette. /02/20/2018 saudi02/20/2018
--- NOTE | 2018-02-21 19:17 | DS ---
Physical Exam: SUBJECTIVE: Patient seen and examined in his room. Patient ready for discharge to home today. OBJECTIVE: Vital Signs Period Temp Pulse Resp BP Sys/Christopher Pulse Ox Last 24 Hr 98 F-98.5 F 70-88 16-20 110-127/69-76 95-98 PHYSICAL EXAM GENERAL: The patient is awake, alert, and fully oriented, in no acute distress. HEAD: Normal with no signs of trauma. EYES: PERRL, extraocular movements intact, sclera anicteric, conjunctiva clear. ENT: Ears normal, nares patent, oropharynx clear without exudates, moist mucous membranes. NECK: +gauze with tegaderm to mid anterior cervical region; no strike through or erythema. LUNGS: Breath sounds equal, clear to auscultation bilaterally, no wheezes, no crackles, no accessory muscle use. HEART: Regular rate and rhythm, S1, S2 without murmur, rub or gallop. ABDOMEN: Soft, nontender, nondistended, normoactive bowel sounds, no guarding, no rebound, no hepatosplenomegaly, no masses. EXTREMITIES: 2+ pulses, warm, well-perfused, no edema. NEUROLOGICAL: No facial droop, normal speech, gait not observed. PSYCH: Normal mood, normal affect. SKIN: Warm, dry, normal turgor, no rashes or lesions noted. LABS Laboratory Results - last 24 hr 02/21/18 02/21/18 06:30 06:30 WBC 11.8 H RBC 4.62 Hgb 13.2 Hct 40.2 MCV 87.0 MCH 28.5 MCHC 32.7 RDW 13.9 Plt Count 267 MPV 8.1 Sodium 140 Potassium 4.1 Chloride 103 Carbon Dioxide 29 Anion Gap 8 BUN 13 Creatinine 0.8 Creat Clearance w eGFR > 60 Random Glucose 97 Calcium 9.0 HOSPITAL COURSE: 37 year old male with PMHx of cervical progressive cervical radiculopathy for the past year with failure of conservative care. Patient had no injury reported prior to the pain and was scheduled for elective procedure 02/19/18. Patient had C4-C5 anterior cervical discectomy and fusion with orthopedist Dr. Beckford; estimated blood loss of 20cc with no complications intraoperatively reported. Post op he was transferred to ICU for overnight monitoring. He was transferred to the floor after 24 hours. Patient reports having some soreness around the neck but is adequately controlled with the pain medications. Otherwise, patient denies any fever, chills, nausea, vomiting, abdominal pain, chest pain, palpitations, shortness of breath, headaches. Date of Admission:02/19/18 Date of Discharge: 02/21/18 S/P Anterior C4-C5 Discectomy and fusion -Avoid twisting, 5lb lifting restriction -Oxycodone 5 mg for pain management called into your pharmacy -Flexeril 10 mg as needed for muscle stiffness -Avoid NSAIDs until cleared by Dr. Beckford. -follow up with Dr. Beckford 03/01/18. Tobacco Use -Counseled on cessation methods. Acid reflux -Continue home medication Prilosec 20 mg daily Seasonal allergies -Continue Ginny 180 mg qday Minutes to complete discharge: 25 Discharge Summary Reason For Visit: MIDCERVICAL DISC DISORDER Condition: Stable - Instructions Diet, Activity, Other Instructions: Alden Liu were admitted to [facility] on 02/19/2018 for anterior cervical discectomy and fusion. Here are our recommendations: 1) S/P Anterior C4-C5 Discectomy and fusion -Avoid twisting, 5lb lifting restriction -Contact your provider if difficulty swallowing or breathing. -Oxycodone 5 mg for pain management called into your pharmacy -Flexeril 10 mg as needed for muscle stiffness -Avoid NSAIDs until cleared by Dr. Beckford. 2) Tobacco Use -Tobacco use is harmful to your health, it is encouraged that you quit. 3) Acid reflux -Continue home medication Prilosec 20 mg daily 4) Seasonal allergies -Continue Ginny 180 mg qday You have a follow up with Dr. Beckford at [facility] [place] office 03/01/18. I am available for questions. [facility] [phone] Referrals: Luis Antonio Beckford MD [Staff Physician] - Disposition: HOME - Home Medications Comprehensive Discharge Medication List: Ambulatory Orders Omeprazole [Prilosec] 20 mg PO DAILY 10/28/15 Cyclobenzaprine HCl [Flexeril 10 mg] 10 mg PO HS PRN 07/27/16 Fexofenadine HCl [Ginny Allergy] 180 mg PO DAILY PRN 07/27/16 Oxycodone HCl/Acetaminophen [Percocet 10-325 mg Tablet] 1 each PO Q6H PRN This patient is new to me today: Yes Date on this admission: 02/21/18 Emergency Visit: No Critical Care patient: No - Discharge Referral Referred to [facility] No
== END 2018-02-21 12:52 | disposition home or self-care (01) | DRG 472 ==
LOC: JASUSAT 09:54 → JICU 21:07 → JASUSAT 23:27 → J8W 02-20 18:57
PROVIDERS: ADMIT Orthopaedic Surgery Orthopaedic Surgery of the Spine; ATTEND Nurse Practitioner Adult Health
PROC: 0RG10A0 Fusion of Cervical Vertebral Joint with Interbody Fusion Device, Anterior Approach, Anterior Column, Open Approach (ICD-10-PCS; 2018-02-19)
PROC: 4A10X4G Monitoring of Central Nervous Electrical Activity, Intraoperative, External Approach (ICD-10-PCS; 2018-02-19)
PROC: 0RB30ZZ Excision of Cervical Vertebral Disc, Open Approach (ICD-10-PCS; principal; 2018-02-19 11:15)
DX: M48.02 Spinal stenosis, cervical region (principal); M47.12 Other spondylosis with myelopathy, cervical region; M54.12 Radiculopathy, cervical region; F17.210 Nicotine dependence, cigarettes, uncomplicated
CPT/HCPCS: 36415; 76000-TC-FY; 80048; 83735; 84100; 85027; 86850; 86900; 86901; 88304-TC; 94760; 97116-GP; J0131

== ENCOUNTER 2021-06-25 15:46 | Emergency (ER) | payer OTHER, BC ==
[2021-06-25 15:52] VITALS: BP 141/91; PULSE 103; TEMP 98.1; BMI 27.3
[2021-06-25] MEDS ORDERED: KETOROLAC TROMETHAMINE 60 MG/2 ML VIAL IM ONE (17:26)
[2021-06-25] MEDS ORDERED: ACETAMINOPHEN 325 MG TABLET (FP) PO ONE (17:27)
[2021-06-25] MEDS ORDERED: CYCLOBENZAPRINE HCL 10 MG TABLET (FP) PO ONE (17:27)
[2021-06-25] MEDS ORDERED: LIDOCAINE 5% TOPICAL PATCH TP ONE (17:27)
[2021-06-25] MEDS ORDERED: LIDOCAINE 5% TOPICAL PATCH ONE (18:12)
[2021-06-25] MEDS ORDERED: CYCLOBENZAPRINE HCL 10 MG TABLET (FP) ONE (18:12)
[2021-06-25] MEDS ORDERED: KETOROLAC TROMETHAMINE 30 MG/1 ML VIAL ONE (18:12)
[2021-06-25] MEDS ORDERED: ACETAMINOPHEN 325 MG TABLET (FP) ONE (18:12)
== END 2021-06-25 19:03 | disposition home or self-care (01) ==
LOC: JERFT 15:46
PROC: 3E0233Z Introduction of Anti-inflammatory into Muscle, Percutaneous Approach (ICD-10-PCS; principal; 2021-06-25)
DX: M54.50 Low back pain, unspecified (principal)
CPT/HCPCS: 72100-TC-FY; 73502-TC-LT-FY; 73552-TC-LT-FY; 99285-25